=== PATIENT | female | born 1975 | race Caucasian/White ===

== ENCOUNTER 2018-12-04 11:48 | Emergency (ER) | payer BC ==
[~2018-12-04] VITALS: Ht 167.6 cm; Wt 61.2 kg
--- NOTE | 2018-12-04 11:55 | NUR ---
ED Nurse Note: Wilfredo walked into ED c/o posterior head migraine tht has been an ongoing issue for 24 hours, patient als complains of bilateral leg pain, patient complains of no vision changes other than stating that her eyes are dry. patient is alert and oriented x4, ambulatory with a steady gait, VSS
[2018-12-04 11:58] VITALS: BP 132/89
--- NOTE | 2018-12-04 12:20 | NUR ---
ED Nurse Note: received verbal orders from JAVIER Salazar for lidocaine patch
--- NOTE | 2018-12-04 12:20 | Emergency Room Report ---
History of Present Illness General Chief Complaint: Headache Source: Patient Present Illness HPI 43-year-old female patient presents ER complaining of headache and low back pain. Reports headache symptoms began yesterday. Reports worst headache of her life. Reports headache is in the posterior right side of her head. States has taken Motrin with mild relief of symptoms. Denies history of migraines. States "I think this is a migraine". Denies vomiting or vision changes. Denies photophobia or phonophobia. Denies neck pain. Denies other aggravating or relieving factors. Also complaining of low back pain. States that radiates down both of her legs. Denies bowel or bladder incontinence. Denies acute injury or trauma.. Denies abdominal pain. Denies dysuria, hematuria, vaginal discharge. Denies diarrhea. Denies history of back pain problems. Denies drug use. Denies other aggravating or relieving factors. Allergies: Coded Allergies: No Known Allergies (Unverified , 12/04/18) Patient History Past Medical History: see triage record Reviewed Nursing Documentation: PMH: Agreed; PSxH: Agreed Nursing Documentation-PMH Past Medical History: No Stated History Review of Systems All Other Systems: negative except mentioned in HPI Physical Exam Vital Signs Date Time Temp Pulse Resp B/P (MAP) Pulse Ox O2 Delivery O2 Flow Rate FiO2 12/04/18 11:53 98.2 86 19 132/89 99 Room Air Sp02 EP Interpretation: reviewed, normal Head: normocephalic, atraumatic Eyes: bilateral eye normal inspection, bilateral eye PERRL ENT: hearing grossly normal, normal pharynx, no angioedema, normal voice, TMs + canals normal, uvula midline, moist mucus membranes Neck: full range of motion, no meningismus, no bony tend Respiratory: lungs clear, normal breath sounds, no rhonchi, no respiratory distress, no accessory muscle use, no wheezing, speaking full sentences Cardiovascular #1: regular rate, rhythm, no edema Gastrointestinal: non tender, soft, no mass, non-distended, no guarding, no rebound Musculoskeletal: back normal, digits/nails normal, gait/station normal, normal range of motion, non-tender, other - NVI Neurologic: alert, oriented x3, responsive, newborn photographer III-XII nml as tested, motor strength/tone normal, sensory intact, cerebellar normal, normal gait, speech normal, other - Negative Kernig, negative Brudzinski, straight leg raise positive bilaterally Psychiatric: mood/affect normal Skin: no rash Medical Decision Making PA Attestation Dr. New is my supervising Physician whom patient management has been discussed with. Diagnostic Impression: Primary Impression: Headache Additional Impression: Lumbar radiculopathy ER Course Pt presents to ED c/o headache. DDX considered but are not limited to migraine, cluster ALEXANDER, tension ALEXANDER, meningitis, ICH, meningitis, HTN, influenza, sinusitis, temporal arteritis, SAH , UTI, sprain, strain, cauda equina, epidural abscess, AAA, spinal cord compression, kidney stones, disc herniation. Negative Kernig, negative Brudzinski, low suspicion for meningitis. Low suspicion for cauda equina, no bowel or bladder incontinence or retention. No fever, nontoxic appearing, no radiation of pain, low suspicion for epidural mass. No abdominal pain, no blood pressure elevation, nontoxic appearing, low suspicion for AAA. VITAL SIGNS are WNL, patient is afebrile ER COURSE Provided patient with Reglan for headache. Patient declined ibuprofen and Toradol. Urine unremarkable, no signs of infection, urine negative CT head negative. Discussed need for referral to neurology. Take Motrin for pain symptoms. X-ray lumbar spine negative for acute disease per the preliminary reading. Advised patient on rest, ice, heat. Follow-up with primary care provider discussed need for MRI. discussed need for referral to orthopedics/pain management/physical therapy. Patient reports pain improved while in the ER. Patient is AOx3, neurologically intact, nontoxic appearing, and ambulatory. Able to ambulate independently without difficulty. Smiling and laughing. ER precautions given. Followup with PCP and discuss referral to neurology. DISCHARGE: At this time pt is stable for d/c to home. Patient is resting comfortably, in no acute distress, nontoxic appearing, talking and smiling. Will provide with patient care instructions and any necessary prescriptions. Patient to take medication as instructed. Care plan and follow-up instructions provided. Patient questions asked and answered. Patient instructed to follow-up with primary care provider in the next 3 days and discuss further referral with PCP to neurologist. ER precautions given. Patient instructed to return to ER immediately for any new or worsening of symptoms including but not limited to fever, neck stiffness , vision changes, and neurological symptoms. - Please note that this Emergency Department Report was dictated using [employer] breaker technology software, occasionally this can lead to erroneous entry secondary to interpretation by the dictation equipment. Labs Test 12/04/18 12:20 Urine Color Pale yellow Urine Appearance Clear Urine pH 6.5 (4.5-8.0) Urine Specific [place] 1.005 (1.005-1.035) Urine Protein Negative (NEGATIVE) Urine Glucose (UA) Negative (NEGATIVE) Urine Ketones Negative (NEGATIVE) Urine Blood Negative (NEGATIVE) Urine Nitrite Negative (NEGATIVE) Urine Bilirubin Negative (NEGATIVE) Urine Urobilinogen Normal MG/DL (0.0-1.0) Urine Leukocyte Esterase 1+ (NEGATIVE) Urine RBC 0 /HPF (0 - 2) Urine WBC 0-2 /HPF (0 - 2) Urine Squamous Epithelial Cells Occasional /LPF Urine Bacteria None /HPF (NONE) Urine HCG, Qualitative Negative (NEGATIVE) Other X-Ray Diagnostic Results Other X-Ray Diagnostic Results : X-Ray ordered: lumbar spine # of Views/Limited Vs Complete: 3 View Indication: Pain EP Interpretation: Yes PA Xray: Interpretation reviewed, by supervising MD, and agrees with findings. Interpretation: no dislocation, no soft tissue swelling, no fractures Impression: No acute disease JAVIER ScribWilson Zepeda PA-C CT/MRI/US Diagnostic Results CT/MRI/US Diagnostic Results : Imaging Test Ordered: CT head Impression negative Last Vital Signs Date Time Temp Pulse Resp B/P (MAP) Pulse Ox O2 Delivery O2 Flow Rate FiO2 12/04/18 11:58 98.2 76 19 132/89 99 Room Air Status: improved Disposition: HOME, SELF-CARE Condition: Stable Scripts Diclofenac Sodium (VOLTAREN) 100 Gm Gel..gram. 100 GM TP BID, #100 GM Prov: Tank [email or web address] 12/04/18 Methocarbamol* (ROBAXIN*) 500 Mg Tablet 500 MG PO TID, #21 TAB 0 Refills Prov: Tank [email or web address] 12/04/18 Ibuprofen* (MOTRIN*) 600 Mg Tablet 600 MG ORAL Q8H PRN for For Pain, #30 TAB 0 Refills Prov: Tank [email or web address] 12/04/18 Patient Instructions: Back Exercises, [id number], General Headache Without Cause, Lumbosacral Radiculopathy, Migraine Headache Additional Instructions: Patient instructed to follow up with primary care provider 3-5 and discuss further referral to ortho/PT/pain management and need for MRI imaging at that time. Discussed referral to neurology as needed for headache symptoms. Patient instructed on rest, ice and heat. Do not take muscle relaxant prior to drinking, driving, or operating heavy machinery. Take medications as directed. Patient questions asked and answered. ER precautions given, patient instructed to return to ER immediately for any new or worsening of symptoms. [facility] [address] [facility] [address] [place], [id number] [email or web address] Tank Zepeda Dec 04, 2018 12:20
[2018-12-04] MEDS ORDERED: Ketorolac 30mg Inj ONE (13:09)
[2018-12-04 13:14] LABS: BILIRUBIN, URINE NEGATIVE (NEGATIVE); COLOR,URINE PALE YELLOW; GLUCOSE, URINE (UA) NEGATIVE (NEGATIVE); KETONES,URINE NEGATIVE (NEGATIVE); LEUKOCYTE ESTERASE ,URINE 1+ (NEGATIVE); NITRITE,URINE NEGATIVE (NEGATIVE); PH,URINE 6.5 (4.5-8.0); PROTEIN,URINE NEGATIVE (NEGATIVE); UROBILINOGEN,URINE NORMAL MG/DL (0.0-1.0)
--- NOTE | 2018-12-04 13:14 | NUR ---
ED Nurse Note: Will give meds as ordered, see downtime form
[2018-12-04 13:15] LABS: APPEARANCE,URINE CLEAR
--- NOTE | 2018-12-04 13:26 | NUR ---
ED Nurse Note: Patient refused pain medication, toradol IM injection refused
[2018-12-04] MEDS ORDERED: Ketorolac 30mg Inj IM ONE (14:00)
--- NOTE | 2018-12-04 14:40 | Diagnostic Imaging Report ---
Indication: Pain, headache Technique: Continuous helical CT scanning of the head was performed without intravenous contrast material. Axial and coronal 5 mm sections were generated. Radiation dose was minimized using automated exposure control Dose: Total Dose Length Product - DLP 1354.[address] Dose Index - CTDIvol(s) 70.38 mGy. Comparison: none Findings: The ventricular system is normal in size and configuration. There is no shift of midline structures. No abnormal extra-axial fluid collections are noted. There is no evidence of intracerebral bleeding. No other abnormal high or low density areas are noted within the brain. Richardson-white differentiation is normal. Visualized orbits and sinuses are unremarkable. The mastoids are clear. Impression: Normal CT scan of the head without contrast material. The CT scanner at [facility] is accredited by the [employer] and the scans are performed using protocols designed to limit radiation exposure to as low as reasonably achievable to attain images of sufficient resolution adequate for diagnostic evaluation.
[2018-12-04] MEDS ORDERED: ROBAXIN500 MG PO (15:39)
[2018-12-04] MEDS ORDERED: VOLTAREN100 G1 TP (15:39)
[2018-12-04] MEDS ORDERED: IBUPROFEN600 MG ORAL (15:39)
[2018-12-04 15:52] VITALS: BP 135/82
--- NOTE | 2018-12-04 15:53 | NUR ---
ER DISCHARGE NOTE: Patient is cleared to be discharged per ERMD, pt is aox4, on room air, with stable vital signs. pt was given dc and prescription instructions, pt was able to verbalize understanding, pt id band removed without complications. pt is able to ambulate with steady gait. pt took all belongings.
--- NOTE | 2018-12-04 15:59 | Diagnostic Imaging Report ---
Indication: Pain, status post fall one day ago Technique: 3 views of the lumbar spine Comparison: None Findings: Bony alignment is normal. Vertebral body heights are preserved. The disc spaces are preserved. The pedicles are intact. Sacral arches are preserved. Sacroiliac joint spaces are preserved. The included extra spinal soft tissues are unremarkable Impression: Negative
== END 2018-12-04 15:53 | disposition home or self-care (01) ==
LOC: EMR 12:25
DX: R51 Headache (principal); M54.16 Radiculopathy, lumbar region
CPT/HCPCS: 70450; 72020; 81003; 81025; 96372; 99284